=== PATIENT | male | born 1950 ===

== ENCOUNTER 2022-07-28 13:11 | Outpatient (REF) | payer MEDICARE, SELFPAY ==
[2022-07-28 12:37] LABS: Abs Immature Grans 0.03 10^3/uL (0.0-0.06); Absolute Basophil Count 0.05 10^3/uL (0.0-0.2); Absolute Eosinophil Count 0.22 10^3/uL (0.0-0.7); Absolute Lymphocyte Count 0.98 10^3/uL (1.2-3.4); Absolute Monocyte Count 1.36 10^3/uL (0.1-0.8); Basophils % 0.5; HCT 43.4 % (40.0-50.0); HGB 13.6 g/dL (13.5-17.5); Immature Grans % 0.3; Lymphocytes % 8.9; MCH 28.3 pg (27.0-33.0); MCHC 31.3 % (32.0-36.0); MCV 90 fL (80-95); MPV 10.6 fL (8.0-11.0); Monocytes % 12.4; Neutrophils % 75.9; Platelet Count 193 10^3/uL (130-400); RDW 14.1 % (11.8-14.1); RDW-SD 46.7 fL; WBC 10.98 10^3/uL (4.4-10.8)
[2022-07-28 12:38] LABS: Absolute Neutrophil Count 8.33 10^3/uL (1.2-6.7)
[2022-07-28 12:47] LABS: ALT 26 U/L (16-63); AST 17 U/L (15-37); Albumin 3.9 g/dL (3.4-5.0); Alkaline Phosphatase 78 U/L (46-116); Anion Gap 4.6 mmol/L (3-11); BUN 23 mg/dL (7-18); Bilirubin, Total 0.4 mg/dL (0.2-1.0); CO2 32.4 mmol/L (21.0-32.0); CREATININE 0.9 mg/dL (0.70-1.30); Calcium 9.6 mg/dL (8.5-10.1); Chloride 103 mmol/L (98-107); Estimated GFR 90.74 (mL/min/1.73m2); Glucose 126 mg/dL (74-106); Potassium 4.3 mmol/L (3.5-5.1); Sodium 140 mmol/L (136-145); Total Protein 7.1 g/dL (6.4-8.2)
== END 2022-07-28 13:12 | disposition home or self-care (01) ==
LOC: LBN 13:11
PROVIDERS: Internal Medicine Hematology & Oncology; Visit Provider Internal Medicine
DX: C34.12 Malignant neoplasm of upper lobe, left bronchus or lung (principal)
CPT/HCPCS: 80053; 85025

== ENCOUNTER 2022-09-08 02:23 | Outpatient (CLI) | payer MEDICARE, SELFPAY ==
[2022-09-08 11:58] LABS: Abs Immature Grans 0.06 10^3/uL (0.0-0.06); Absolute Basophil Count 0.06 10^3/uL (0.0-0.2); Absolute Eosinophil Count 0.28 10^3/uL (0.0-0.7); Absolute Monocyte Count 1.23 10^3/uL (0.1-0.8); Basophils % 0.5; Eosinophils % 2.4; HCT 43.1 % (40.0-50.0); Immature Grans % 0.5; Lymphocytes % 7.8; MCH 28.2 pg (27.0-33.0); MCHC 30.2 % (32.0-36.0); MCV 94 fL (80-95); MPV 10.2 fL (8.0-11.0); Monocytes % 10.7; Neutrophils % 78.1; Platelet Count 111 10^3/uL (130-400); RBC 4.61 10^6/uL (4.36-5.78); RDW 19.1 % (11.8-14.1); RDW-SD 65.3 fL; WBC 11.51 10^3/uL (4.4-10.8)
[2022-09-08 11:59] LABS: Absolute Neutrophil Count 8.99 10^3/uL (1.2-6.7)
[2022-09-08 12:23] LABS: ALT 36 U/L (16-63); AST 21 U/L (15-37); Albumin 3.7 g/dL (3.4-5.0); Alkaline Phosphatase 78 U/L (46-116); Anion Gap 4.1 mmol/L (3-11); BUN 25 mg/dL (7-18); Bilirubin, Total 0.5 mg/dL (0.2-1.0); CO2 34.9 mmol/L (21.0-32.0); Calcium 9.4 mg/dL (8.5-10.1); Chloride 103 mmol/L (98-107); Estimated GFR 79.97 (mL/min/1.73m2); Glucose 142 mg/dL (74-106); Magnesium 2.1 mg/dL (1.8-2.4); Potassium 4.4 mmol/L (3.5-5.1); Sodium 142 mmol/L (136-145); Total Protein 7.1 g/dL (6.4-8.2)
== END 2022-09-08 02:24 | disposition home or self-care (01) ==
LOC: LBO 02:23
PROVIDERS: Visit Provider Nurse Practitioner Family
DX: C34.12 Malignant neoplasm of upper lobe, left bronchus or lung (principal)
CPT/HCPCS: 36415; 80053; 83735; 85025

== ENCOUNTER 2022-09-29 04:28 | Outpatient (CLI) | payer MEDICARE, SELFPAY ==
[2022-09-29 08:52] LABS: Abs Immature Grans 0.02 10^3/uL (0.0-0.06); Absolute Basophil Count 0.01 10^3/uL (0.0-0.2); Absolute Eosinophil Count 0.02 10^3/uL (0.0-0.7); Absolute Lymphocyte Count 0.65 10^3/uL (1.2-3.4); Basophils % 0.6; Eosinophils % 1.2; HCT 37.7 % (40.0-50.0); HGB 11.7 g/dL (13.5-17.5); Immature Grans % 1.2; Lymphocytes % 38.9; MCH 29.6 pg (27.0-33.0); MCV 95 fL (80-95); MPV 9.3 fL (8.0-11.0); Monocytes % 35.9; Neutrophils % 22.2; Nucleated RBC 1.2 % (0.0-0.3); Platelet Count 177 10^3/uL (130-400); RBC 3.95 10^6/uL (4.36-5.78); RDW 19.7 % (11.8-14.1); RDW-SD 65.5 fL
[2022-09-29 09:09] LABS: Absolute Neutrophil Count 0.37 10^3/uL (1.2-6.7); Diff Comment Diff Reviewed; RBC Morphology Normal; WBC 1.67 10^3/uL (4.4-10.8)
[2022-09-29 09:11] LABS: ALT 27 U/L (16-63); AST 19 U/L (15-37); Albumin 3.6 g/dL (3.4-5.0); Alkaline Phosphatase 79 U/L (46-116); Anion Gap 4.7 mmol/L (3-11); BUN 17 mg/dL (7-18); Bilirubin, Total 0.3 mg/dL (0.2-1.0); CO2 35.3 mmol/L (21.0-32.0); Calcium 9.3 mg/dL (8.5-10.1); Chloride 103 mmol/L (98-107); Estimated GFR 79.97 (mL/min/1.73m2); Glucose 126 mg/dL (74-106); Magnesium 1.9 mg/dL (1.8-2.4); Potassium 4.2 mmol/L (3.5-5.1); Sodium 143 mmol/L (136-145); Total Protein 6.8 g/dL (6.4-8.2)
== END 2022-09-29 04:29 | disposition home or self-care (01) ==
LOC: LBO 04:28
PROVIDERS: Visit Provider Nurse Practitioner Family
DX: C34.12 Malignant neoplasm of upper lobe, left bronchus or lung (principal)
CPT/HCPCS: 36415; 80053; 83735; 85025

== ENCOUNTER 2022-10-06 04:19 | Outpatient (CLI) | payer MEDICARE, SELFPAY ==
[2022-10-06 09:11] LABS: Absolute Basophil Count 0.05 10^3/uL (0.0-0.2); Absolute Eosinophil Count 0.03 10^3/uL (0.0-0.7); Absolute Lymphocyte Count 0.91 10^3/uL (1.2-3.4); Absolute Monocyte Count 1.24 10^3/uL (0.1-0.8); Absolute Neutrophil Count 5.36 10^3/uL (1.2-6.7); Basophils % 0.7; Eosinophils % 0.4; HCT 39.3 % (40.0-50.0); HGB 12.2 g/dL (13.5-17.5); Immature Grans % 1.3; Lymphocytes % 11.8; MCH 30.1 pg (27.0-33.0); MCV 97 fL (80-95); MPV 9.3 fL (8.0-11.0); Monocytes % 16.1; Neutrophils % 69.7; Platelet Count 205 10^3/uL (130-400); RBC 4.05 10^6/uL (4.36-5.78); RDW 20.2 % (11.8-14.1); RDW-SD 71.4 fL; WBC 7.69 10^3/uL (4.4-10.8)
[2022-10-06 09:30] LABS: ALT 24 U/L (16-63); AST 17 U/L (15-37); Albumin 3.8 g/dL (3.4-5.0); Alkaline Phosphatase 85 U/L (46-116); Anion Gap 5.1 mmol/L (3-11); BUN 19 mg/dL (7-18); Bilirubin, Total 0.4 mg/dL (0.2-1.0); CO2 35.9 mmol/L (21.0-32.0); CREATININE 0.9 mg/dL (0.70-1.30); Calcium 9.6 mg/dL (8.5-10.1); Chloride 105 mmol/L (98-107); Estimated GFR 90.74 (mL/min/1.73m2); Glucose 135 mg/dL (74-106); Magnesium 1.9 mg/dL (1.8-2.4); Potassium 4.6 mmol/L (3.5-5.1); Sodium 146 mmol/L (136-145); Total Protein 7.1 g/dL (6.4-8.2)
[2022-10-06 09:35] LABS: Anisocytosis 2+; Diff Comment RBC Morph Reviewed
== END 2022-10-06 04:20 | disposition home or self-care (01) ==
LOC: LBO 04:19
PROVIDERS: Visit Provider Nurse Practitioner Family
DX: C34.12 Malignant neoplasm of upper lobe, left bronchus or lung (principal)
CPT/HCPCS: 36415; 80053; 83735; 85025

== ENCOUNTER 2022-10-29 02:37 | Outpatient (CLI) | payer MEDICARE, SELFPAY ==
[2022-10-29 11:48] LABS: Abs Immature Grans 0.09 10^3/uL (0.0-0.06); Absolute Basophil Count 0.07 10^3/uL (0.0-0.2); Absolute Eosinophil Count 0.01 10^3/uL (0.0-0.7); Absolute Monocyte Count 1.58 10^3/uL (0.1-0.8); Absolute Neutrophil Count 7.09 10^3/uL (1.2-6.7); Basophils % 0.7; Eosinophils % 0.1; HGB 10.7 g/dL (13.5-17.5); Immature Grans % 0.9; Lymphocytes % 8.3; MCH 31.2 pg (27.0-33.0); MCHC 30.6 % (32.0-36.0); MCV 102 fL (80-95); MPV 9.5 fL (8.0-11.0); Monocytes % 16.4; Neutrophils % 73.6; Nucleated RBC 0.3 % (0.0-0.3); Platelet Count 242 10^3/uL (130-400); RBC 3.43 10^6/uL (4.36-5.78); RDW 23.2 % (11.8-14.1); RDW-SD 88.8 fL; WBC 9.64 10^3/uL (4.4-10.8)
[2022-10-29 12:08] LABS: Anisocytosis 2+; Diff Comment Agrees w/ Instrument
[2022-10-29 12:09] LABS: ALT 31 U/L (16-63); AST 18 U/L (15-37); Albumin 3.8 g/dL (3.4-5.0); Alkaline Phosphatase 85 U/L (46-116); Anion Gap 7.5 mmol/L (3-11); BUN 14 mg/dL (7-18); Bilirubin, Total 0.5 mg/dL (0.2-1.0); CO2 31.5 mmol/L (21.0-32.0); CREATININE 0.9 mg/dL (0.70-1.30); Calcium 9.1 mg/dL (8.5-10.1); Chloride 104 mmol/L (98-107); Estimated GFR 90.74 (mL/min/1.73m2); Glucose 147 mg/dL (74-106); Magnesium 2.1 mg/dL (1.8-2.4); Potassium 4.6 mmol/L (3.5-5.1); Sodium 143 mmol/L (136-145); Total Protein 6.6 g/dL (6.4-8.2)
== END 2022-10-29 02:38 | disposition home or self-care (01) ==
LOC: LBO 02:37
PROVIDERS: Visit Provider Nurse Practitioner Family
DX: C34.12 Malignant neoplasm of upper lobe, left bronchus or lung (principal)
CPT/HCPCS: 36415; 80053; 83735; 85025